=== PATIENT | male | born 2005 | race Caucasian/White ===

== ENCOUNTER 2024-03-02 19:29 | Emergency (ER) | payer OTHER ==
[~2024-03-02] VITALS: Ht 185.4 cm; Wt 84.1 kg
[2024-03-02 19:35] VITALS: TEMP 98.1
[2024-03-02] MEDS ORDERED: LR 1,000 ML IV ONE (20:15)
[2024-03-02 20:37] LABS: BASO # 0.1 K/mm3 (0.0-0.2); BASO % 0.8 % (0.0-2.0); EOS # 0.2 K/mm3 (0.0-0.7); GRAN % 49.5 % (42.2-75.2); HEMATOCRIT 45.3 % (36.0-47.0); HEMOGLOBIN 15.6 g/dl (12.5-16.1); LYMPH # 2.4 K/mm3 (1.2-3.4); LYMPH % 39.8 % (20.0-51.0); MEAN CELL VOLUME 84 fl (80.0-95.0); MEAN CORPUSCULAR HEMOGLOBIN 29 pg (26-32); MEAN CORPUSCULAR HGB CONC 34 g/dl (33.0-37.0); MEAN PLATELET VOLUME 10.7 fl (7.4-10.4); MONO # 0.4 K/mm3 (0.1-0.6); MONO % 6.7 % (1.7-9.3); PLATELET COUNT 230 K/mm3 (130-400); RED BLOOD COUNT 5.39 M/mm3 (4.20-5.60); REDCELL DISTRIBUTION WIDTH-CV 12.8 % (11.5-14.5)
[2024-03-02 20:58] LABS: ALBUMIN 4.5 g/dL (3.5-5.0); BILIRUBIN,TOTAL 0.5 mg/dL (0.2-1.2); CALCIUM 9.5 mg/dL (8.4-10.2); CREATININE, serum 1.16 mg/dL (0.72-1.25); TOTAL PROTEIN 7.6 g/dl (6.2-8.1)
[2024-03-02 21:17] LABS: TSH w REFLEX 27.372 uIU/mL (0.350-4.940)
[2024-03-02 22:01] VITALS: BP 134/69; PULSE 65
== END 2024-03-02 22:01 | disposition home or self-care (01) ==
LOC: COL.ER 19:29
PROVIDERS: Emergency Medicine
DX: R42 Dizziness and giddiness (principal); E03.9 Hypothyroidism, unspecified; R53.81 Other malaise; R53.83 Other fatigue; Z79.899 Other long term (current) drug therapy
CPT/HCPCS: J7120